=== PATIENT | male | born 1980 | race Caucasian/White ===

== ENCOUNTER 2022-06-26 18:13 | Emergency (ER) | payer OTHER ==
[~2022-06-26] VITALS: Ht 172.7 cm; Wt 102.0 kg
[2022-06-26 18:21] VITALS: BP 142/102
== END 2022-06-27 03:19 | disposition left against medical advice (07) ==
LOC: ER 18:13
DX: Z53.21 Procedure and treatment not carried out due to patient leaving prior to being seen by health care provider (principal)